=== PATIENT | female | born 1995 | race Asian ===

== ENCOUNTER 2019-08-10 14:42 | Emergency (ER) | payer MEDICAID ==
[~2019-08-10] VITALS: Ht 162.6 cm; Wt 45.4 kg
[~2019-08-10 14:42] MED LIST: NITROFURANTOIN100 M2 ORAL; ZOFRAN ODT4 MG ORAL
[2019-08-10 14:49] VITALS: BP 116/60
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
--- NOTE | 2019-08-10 15:25 | NUR ---
ED Nurse Note: pt. went down to CT
--- NOTE | 2019-08-10 15:49 | NUR ---
ED Nurse Note: pt. came back from ct
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
[2019-08-10] MEDS ORDERED: IBU800 MG PO (16:54)
[2019-08-10 16:56] VITALS: BP 117/68
--- NOTE | 2019-08-10 16:56 | NUR ---
ER DISCHARGE NOTE: Patient is cleared to be discharged per PA, pt is aox4, on room air, with stable vital signs. pt was given dc and prescription instructions, pt was able to verbalize understanding, pt id band removed. pt is able to ambulate with steady gait. pt took all belongings.
== END 2019-08-10 16:56 | disposition home or self-care (01) ==
LOC: EMR 15:31
DX: S00.93XA Contusion of unspecified part of head, initial encounter (principal); S00.83XA Contusion of other part of head, initial encounter; Y04.2XXA Assault by strike against or bumped into by another person, initial encounter; Y93.9 Activity, unspecified; Y92.9 Unspecified place or not applicable; K21.9 Gastro-esophageal reflux disease without esophagitis
CPT/HCPCS: 70450; 70486; Z7502; 99284